=== PATIENT | male | born 1980 | race Caucasian/White ===

== ENCOUNTER → 2016-11-20 | Outpatient (CLI) | payer OTHER ==
[~2016-11-20] MED LIST: ASPIR 8181 MG PO; BENTYL 20MG TAB20 MG PO; KLONOPIN TAB 00.5 MG PO; METOPROLOL SUCC25 MG PO; NEURONTIN800 MG PO; NITROSTAT 0.40.4 MG SL; OXYCODONE HCL30 MG PO; PROTONIX40 MG PO
[2016-11-20 13:07] LABS: HEMOGLOBIN 14.8 gm/dl (14.0-17.5); RED BLOOD COUNT 4.46 M/UL (4.20-5.50); WHITE BLOOD COUNT 8.4 K/UL (4.5-11.0)
[2016-11-20 13:33] LABS: BUN/CREATININE RATIO 9 (0-10)
== END ==
LOC: LAB 12:22
PROVIDERS: Internal Medicine Cardiovascular Disease
DX: I49.5 Sick sinus syndrome (principal); I20.9 Angina pectoris, unspecified; R94.31 Abnormal electrocardiogram [ECG] [EKG]; R00.2 Palpitations; R00.1 Bradycardia, unspecified
CPT/HCPCS: 36415; 71020; 80048; 85025

== ENCOUNTER → 2016-11-22 | Outpatient (CLI) | payer OTHER ==
[~2016-11-22] VITALS: Ht 193 cm; Wt 128.8 kg
== END | disposition home or self-care (01) ==
LOC: CATH 07:16
DX: I20.0 Unstable angina (principal); R94.39 Abnormal result of other cardiovascular function study; R94.31 Abnormal electrocardiogram [ECG] [EKG]; I10 Essential (primary) hypertension; F17.210 Nicotine dependence, cigarettes, uncomplicated; K22.70 Barrett's esophagus without dysplasia; K58.9 Irritable bowel syndrome, unspecified; I49.5 Sick sinus syndrome; F19.939 Other psychoactive substance use, unspecified with withdrawal, unspecified; F32.9 Major depressive disorder, single episode, unspecified; R06.02 Shortness of breath; Z79.82 Long term (current) use of aspirin; Z79.891 Long term (current) use of opiate analgesic; Z79.899 Other long term (current) drug therapy; F41.9 Anxiety disorder, unspecified; M19.90 Unspecified osteoarthritis, unspecified site; K21.9 Gastro-esophageal reflux disease without esophagitis; Z87.442 Personal history of urinary calculi; J30.2 Other seasonal allergic rhinitis
CPT/HCPCS: C1769; C1894; J1200; J1644; J2250; J3010; J7030; Q0163; Q9963